=== PATIENT | male | born 1940 ===

== ENCOUNTER → 2019-04-10 | Outpatient (CLI) | payer MEDICARE, BC ==
[~2019-04-10] MED LIST: ASPI81EC PO; ATOR10; ATOR10 PO; BUPR75 PO; ERYT.5TO OS; GLIP2.5ER; GLIP2.5ER PO; HYDACE5325 PO; IBAN2.5; IBAN2.5 PO; IBUP600 PO; INSULANPEN SC; LEVSOD50 PO; LORA10ER PO; LOSA25 PO; LOSHYD; LOSHYD100 PO; META800 PO; METF500; METF500 PO; METO50ER; METO50ER PO; PIOG45; SITA100T2 PO; [UNRECOGNIZED DRUG - OTHER]; [UNRECOGNIZED DRUG - OTHER] PO
== END | disposition home or self-care (01) ==
LOC: PLD 10:39 → LAB SHORT 10:39
DX: C44.219 Basal cell carcinoma of skin of left ear and external auricular canal (principal); L57.0 Actinic keratosis
CPT/HCPCS: 88305